=== PATIENT | female | born 1990 | race American Indian/Alaskan Native ===

== ENCOUNTER 2018-12-30 09:14 | Emergency (ER) | payer OTHER ==
[2018-12-30 09:21] VITALS: BP 150/86
[2018-12-30] MEDS ORDERED: XYLOCAINE 1% 20 mL INFILTRATI ONE (10:41)
[2018-12-30] MEDS ORDERED: NORCO 5/325 PO ONE (10:41)
--- NOTE | 2018-12-30 11:32 | Emergency Department Report ---
Abscess Boil HPI - HPI Chief Complaint: Skin/Abscess/Foreign Body Stated Complaint: CONGESTION/KNOT RT AXILLA Time Seen by Provider: 12/30/18 10:38 Duration: 4 Days Location: Other (right axilla) Severity: Moderate History: Yes Pain, Yes Purulent Drainage, No Fever, No Numbness, No Foreign Body, No Previous History, No Insect Bite HPI: Patient is noticed to assess in the right axilla. Patient tried to squeeze some pus from this area and did have some purulent drainage. Patient also has complained of a mild cough and congestion as well. Patient denies any fevers chills along Home Medications: Previous Rx's Medication Instructions Recorded Last Taken Type Clindamycin [Clindamycin CAP] 300 mg PO Q8H 7 Days cap 12/30/18 Unknown Rx HYDROcodone/APAP 5-325 [[place] 1 each PO Q6HR PRN #15 tablet 12/30/18 Unknown Rx 5/325] Ibuprofen [Motrin] 800 mg PO Q8HR PRN #20 tablet 12/30/18 Unknown Rx Allergies/Adverse Reactions: Allergies Allergy/AdvReac Type Severity Reaction Status Date / Time No Known Allergies Allergy Unverified 12/30/18 09:19 ED Review of Systems ROS: Stated complaint: CONGESTION/KNOT RT AXILLA Other details as noted in HPI Comment: All other systems reviewed and negative ED Past Medical Hx - Past Medical History Previous Medical History?: No - Surgical History Past Surgical History?: No - Social History Smoking Status: Never Smoker Substance Use Type: None - Medications Home Medications: Home Medications Medication Instructions Recorded Confirmed Last Taken Type Clindamycin [Clindamycin CAP] 300 mg PO Q8H 7 Days cap 12/30/18 Unknown Rx HYDROcodone/APAP 5-325 [[place] 1 each PO Q6HR PRN #15 tablet 12/30/18 Unknown Rx 5/325] Ibuprofen [Motrin] 800 mg PO Q8HR PRN #20 tablet 12/30/18 Unknown Rx ED Abscess Boil Physical Exam - Exam General: Vital signs noted. No distress. Alert and acting appropriately. Front/Back of Body, Lg (Color): 1 - R Axilla Size: 2 cm Exam: Yes Tenderness, Yes Fluctuance, Yes Surrounding Cellulites/Erythema, No Lymphangitis, No Crepitation, No Heart Murmur, No Normal Neurologic Exam, No Normal Circulation I & D Note - I & D Note I & D Note: The patient's abscess was cleaned with Betadine. Area was infused with 1% lidocaine. Decent anesthesia was achieved. 11 blade was used to make a 1 cm cut into the abscess. Appears material was drained. Using hemostats to break up loculations. Wound was packed with iodoform gauze. Area was dressed. Patient tolerated procedure well. ED Course Vital Signs 12/30/18 09:19 Temperature 97.7 F Pulse Rate 93 H Respiratory 18 Rate Blood Pressure 150/86 O2 Sat by Pulse 100 Oximetry Critical care attestation.: If time is entered above; I have spent that time in minutes in the direct care of this critically ill patient, excluding procedure time. ED Disposition Clinical Impression: Abscess Disposition: DC-01 TO HOME OR SELFCARE Is pt being admited?: No Does the pt Need Aspirin: No Condition: Stable Instructions: Abscess Incision and Drainage (ED), Abscess (ED) Additional Instructions: Please remove packing from your wound in 2-3 days. Please use a warm compress for pain and to help with drainage. Referrals: DENNYS BURRIS MD [Primary Care Provider] - 3-5 Days Time of Disposition: 11:36
== END 2018-12-30 12:27 | disposition home or self-care (01) ==
LOC: ED 09:14
DX: L02.411 Cutaneous abscess of right axilla (principal)
CPT/HCPCS: 99283

== ENCOUNTER 2019-01-19 11:59 | Emergency (ER) | payer OTHER ==
[2019-01-19] MEDS ORDERED: BICILLIN L-A IM ONE (12:47)
[2019-01-19] MEDS ORDERED: NAPROSYN PO ONE (12:47)
[2019-01-19] MEDS ORDERED: NORCO 5/325 PO ONE (12:48)
--- NOTE | 2019-01-19 12:51 | Emergency Department Report ---
ED ENT HPI - General Chief complaint: Dental/Oral Stated complaint: MOUTH PAIN Source: patient Mode of arrival: Ambulatory Limitations: No Limitations - History of Present Illness Initial comments: PT 28 YO WITH DENTAL PAIN, RIGHT LOWER MOLAR NO ABSCESS TEARFUL HAS NOT BEEN TO DMD MD complaint: tooth pain -: Gradual, days(s) Severity: moderate Context- Dental: history of dental caries Associated Symptoms: toothache - Related Data Previous Rx's Medication Instructions Recorded Last Taken Type Amoxicillin 500 mg PO BID #20 capsule 01/19/19 Unknown Rx Naproxen [Naprosyn] 500 mg PO BID PRN #20 tablet 01/19/19 Unknown Rx Allergies Allergy/AdvReac Type Severity Reaction Status Date / Time No Known Allergies Allergy Unverified 12/30/18 09:19 ED Dental HPI - General Chief complaint: Dental/Oral Stated complaint: MOUTH PAIN Source: patient Mode of arrival: Ambulatory Limitations: No Limitations - Related Data Previous Rx's Medication Instructions Recorded Last Taken Type Amoxicillin 500 mg PO BID #20 capsule 01/19/19 Unknown Rx Naproxen [Naprosyn] 500 mg PO BID PRN #20 tablet 01/19/19 Unknown Rx Allergies Allergy/AdvReac Type Severity Reaction Status Date / Time No Known Allergies Allergy Unverified 12/30/18 09:19 ED Review of Systems ROS: Stated complaint: MOUTH PAIN Other details as noted in HPI Comment: All other systems reviewed and negative Constitutional: denies: see HPI Eyes: denies: eye pain ENT: as per HPI, dental pain. denies: ear pain Respiratory: denies: cough Cardiovascular: denies: palpitations Endocrine: denies: see HPI Gastrointestinal: denies: abdominal pain Genitourinary: denies: dysuria Musculoskeletal: denies: back pain Skin: denies: lesions Neurological: denies: headache Psychiatric: denies: anxiety Hematological/Lymphatic: denies: as per HPI ED Past Medical Hx - Past Medical History Previous Medical History?: No - Surgical History Past Surgical History?: No - Social History Smoking Status: Never Smoker Substance Use Type: None - Medications Home Medications: Home Medications Medication Instructions Recorded Confirmed Last Taken Type Amoxicillin 500 mg PO BID #20 capsule 01/19/19 Unknown Rx Naproxen [Naprosyn] 500 mg PO BID PRN #20 tablet 01/19/19 Unknown Rx ED Physical Exam - General Limitations: No Limitations General appearance: alert - Head Head exam: Present: atraumatic - Eye Eye exam: Present: normal appearance, PERRL Pupils: Present: normal accommodation - ENT ENT exam: Present: normal exam, mucous membranes moist - Expanded ENT Exam Expanded Mouth exam: Present: normal external inspection. Absent: drooling, trismus, muffled voice, tongue normal, tongue elevation, laceration Teeth exam: Present: dental caries 1 - Other (CARIES) - Neck Neck exam: Present: normal inspection ED Medical Decision Making - Medical Decision Making NO LUDWINGS NO ABSCESS TAKING PO MEDICATED AND DC HOME WITH DC POC I've explained to the patient that she needs to follow up with a dentist. This is not her first visit to the ER for her dental pain. I've explained to her that this will only temporize the situation and not fix it. She verbalizes understanding. Patient is being discharged home with dental referrals. Critical care attestation.: If time is entered above; I have spent that time in minutes in the direct care of this critically ill patient, excluding procedure time. ED Disposition Clinical Impression: Dental caries Disposition: DC-01 TO HOME OR SELFCARE Is pt being admited?: No Does the pt Need Aspirin: No Condition: Stable Instructions: Dental Caries (ED) Additional Instructions: THIS IS NOT YOUR FIRST VISIT FOR DENTAL PAIN PLEASE SEE DENTIST THIS WILL NOT GO AWAY UNTIL YOU DO DIET AND ACTIVITY TOLERATED MEDS ORDERED TODAY UNTIL GONE Prescriptions: Amoxicillin 500 mg PO BID #20 capsule Naproxen [Naprosyn] 500 mg PO BID PRN #20 tablet PRN Reason: Pain Referrals: [facility] [Outside] - 3-5 Days [facility] [Outside] - 3-5 Days Time of Disposition: 12:50
[2019-01-19 13:22] VITALS: BP 132/68
== END 2019-01-19 13:20 | disposition home or self-care (01) ==
LOC: ED 11:59
DX: K02.9 Dental caries, unspecified (principal)
CPT/HCPCS: 96372; 99282; J0561